=== PATIENT | female | born 1975 ===

== ENCOUNTER 2023-08-02 11:32 | Outpatient (REF) | payer OTHER, SELFPAY ==
--- NOTE | ~2023-08-02 | XR_ITS ---
EXAMINATION: XR SHOULDER, RIGHT XR SHOULDER, LEFT CLINICAL INFORMATION: Right and left shoulder pain. COMPARISON: None available. TECHNIQUE: AP and scapular Y views of the right and left shoulder. FINDINGS: RIGHT SHOULDER: No acute fracture or dislocation. No significant joint space narrowing or marginal osteophytes. Degenerative cystic change within the greater tuberosity. No concerning lytic or blastic osseous lesion. No abnormal soft tissue calcification. LEFT SHOULDER: No acute fracture or dislocation. Mild acromioclavicular joint space narrowing with small marginal osteophytes. No glenohumeral joint space narrowing or marginal osteophytes. No osseous erosion. No abnormal soft tissue calcification. XR/XR shoulder LT min 2V IMPRESSION: RIGHT SHOULDER: No acute osseous abnormality. LEFT SHOULDER: Mild acromioclavicular osteoarthritis.
--- NOTE | ~2023-08-02 | XR_ITS ---
EXAMINATION: XR SHOULDER, RIGHT XR SHOULDER, LEFT CLINICAL INFORMATION: Right and left shoulder pain. COMPARISON: None available. TECHNIQUE: AP and scapular Y views of the right and left shoulder. FINDINGS: RIGHT SHOULDER: No acute fracture or dislocation. No significant joint space narrowing or marginal osteophytes. Degenerative cystic change within the greater tuberosity. No concerning lytic or blastic osseous lesion. No abnormal soft tissue calcification. LEFT SHOULDER: No acute fracture or dislocation. Mild acromioclavicular joint space narrowing with small marginal osteophytes. No glenohumeral joint space narrowing or marginal osteophytes. No osseous erosion. No abnormal soft tissue calcification. XR/XR shoulder RT min 2V IMPRESSION: RIGHT SHOULDER: No acute osseous abnormality. LEFT SHOULDER: Mild acromioclavicular osteoarthritis.
== END 2023-08-02 11:33 | disposition home or self-care (01) ==
LOC: HO.HOSX 11:32
PROVIDERS: Visit Provider Orthopaedic Surgery
DX: M25.811 Other specified joint disorders, right shoulder (principal); M25.512 Pain in left shoulder
CPT/HCPCS: 73030; 99202

== ENCOUNTER 2023-08-02 14:25 | Outpatient (AMB) | payer OTHER, SELFPAY ==
--- NOTE | 2023-08-02 14:30 | A.OFFVIS_ITS ---
Intake Vital Signs 08/02/23 14:36 Height 4 ft 11 in Weight 120 lb BMI 24.2 Intake Visit Reasons: CAKE M[employer]ER -B/L Shoulder Impingement Intake Note: Kenya is a 48 year old right hand dominant female who presents today as a new patient with complaints of bilateral shoulder pains and weakness. The patient states that she 1st injured her shoulders in her 20s. She reaggravated both of her shoulders approximately 10 years ago while lifting a heavy object. Since that time her symptoms have gotten worse in spite of continued non operative treatments. She has done physical therapy for 12 weeks over the last 6 months which aggravated her pain. She has also had cortisone injections in the past which gave her no relief. She has tried Tylenol and anti-inflammatory medicines which gave her minimal relief. The patient states that she has difficulty lifting her right hand above shoulder height. 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 Physical Exam Vital Signs: BMI result Body Mass Index 24.2 Const Other: Well-nourished well-developed very friendly female awake alert and oriented x3 in no acute distress Extrem Other: Bilateral upper extremity examination shows good capillary refill, no skin lesions noted, normal sensation light touch Bilateral shoulder examination shows forward flexion to 150 degrees, external rotation to 30 degrees, internal rotation to level L4, 4+ over 5 strength with supraspinatus testing, positive impingement signs, tenderness over her acr omioclavicular joints Results Reviewed Results Reviewed: X-rays of the patient's bilateral shoulder show severe acromioclavicular joint narrowing, type 2 acromion, no acute bony abnormalities Assessment & Plan Assessment & Plan (1) Impingement of right shoulder: Code(s): M25.811 - Other specified joint disorders, right shoulder Plan Ms. Leung presents with bilateral shoulder pains and weakness, right greater than left, due to impingement syndrome, acromioclavicular joint arthritis and possible full-thickness rotator cuff tearing. Thus, I will send the patient for an MRI of her right shoulder for further evaluation. If she does have a full- thickness rotator cuff tear I will recommend surgical repair to optimize her future functional level. She will continue with her home stretching program in the meantime to prevent stiffness. I will see the patient back once the MRI results are available. Feel free to call me at any time should questions regarding her orthopedic management arise. Thank you very much for asking me to see this very friendly patient. I spent 22 minutes in reviewing the patient's records and imaging studies, seeing the patient and documenting in the medical record. Orders: Orders XR shoulder RT min 2V Today M25.511 - Pain in right shoulder XR shoulder LT min 2V Today M25.512 - Pain in left shoulder Coding Level of Care Code New Pt Level 2 (10534) Diagnoses Impingement of right shoulder M25.811
[2023-08-02 14:36] VITALS: BMI 24.2
== END 2023-08-02 15:02 | disposition home or self-care (01) ==
PROVIDERS: PCP Nurse Practitioner Adult Health; Visit Provider Orthopaedic Surgery
DX: M25.811 Other specified joint disorders, right shoulder (principal)
CPT/HCPCS: 99202

== ENCOUNTER 2023-08-25 08:49 | Outpatient (AMB) | payer OTHER, SELFPAY ==
[2023-08-25 08:58] VITALS: BMI 24.2
--- NOTE | 2023-08-25 08:58 | MHC.OFFVIS ---
Intake Vital Signs 08/25/23 08:58 Height 4 ft 11 in Weight 120 lb BMI 24.2 Intake Visit Reasons: OV-RT shoulder MRI review Intake Note: Kenya 48 yr old female presents today for her right shoulder MRI review. The patient presents with complaints of progressively worsening right shoulder pain weakness. Her symptoms have gotten worse over the last few years in spite of continued non operative treatments. She has had trouble working out at the gym because of her pain and weakness. She has tried Tylenol and anti-inflammatory medicines which gave her minimal relief. 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 Physical Exam Vital Signs: BMI result Body Mass Index 24.2 Const Other: Well-nourished well-developed very friendly female awake alert and oriented x3 in no acute distress Extrem Other: Bilateral upper extremity examination shows good capillary refill, no skin lesions noted, normal sensation light touch Right shoulder examination shows almost full range of motion when compared to her left shoulder, 4/5 strength with supraspinatus testing, positive impingement signs, tenderness over her acromioclavicular joint, no instability Results Reviewed Results Reviewed: MRI of the patient's right shoulder shows severe acromioclavicular joint narrowing, type 3 acromion, a small full-thickness rotator cuff tear with minimal retraction Assessment & Plan Assessment & Plan (1) Unspecified rotator cuff tear or rupture of right shoulder, not specified as traumatic: Code(s): M75.101 - Unspecified rotator cuff tear or rupture of right shoulder, not specified as traumatic Plan: Ms. Leung presents with right shoulder pain and weakness due to impingement syndrome, acromioclavicular joint arthritis and a small full-thickness rotator cuff tear. I had a lengthy discussion with the patient regarding the treatment options. At this point she appears to be failing continued non operative treatments. The patient will likely need right shoulder rotator cuff repair surgery at some point in the near future. We did discuss the risks and benefits of an arthroscopic repair versus a mini-open repair. She is interested in learning more about an arthroscopic procedure. Thus, I will arrange for her to have a follow-up appointment with my partner, Dr. Kameron Zamora, to further discuss the possibility of right shoulder arthroscopic rotator cuff repair. She will continue with her range of motion exercises in the meantime to prevent stiffness. Feel free to call me at any time should questions regarding her orthopedic management arise. I spent 21 minutes in reviewing the patient's records and imaging studies, seeing the patient and documenting in the medical record. Coding Level of Care Code Est Pt Level 2 (08213) Diagnoses Unspecified rotator cuff tear or rupture of right shoulder, not specified as traumatic M75.101
== END 2023-08-25 09:23 | disposition home or self-care (01) ==
PROVIDERS: PCP Nurse Practitioner Adult Health; Visit Provider Orthopaedic Surgery
DX: M75.101 Unspecified rotator cuff tear or rupture of right shoulder, not specified as traumatic (principal)
CPT/HCPCS: 99212

== ENCOUNTER → 2023-08-25 08:49 | Outpatient (BNVA) | payer OTHER, SELFPAY | PROVIDERS: PCP Nurse Practitioner Adult Health; Visit Provider Orthopaedic Surgery | DX: M75.101 Unspecified rotator cuff tear or rupture of right shoulder, not specified as traumatic (principal) | CPT/HCPCS: 99212 ==

== ENCOUNTER 2023-09-08 11:35 | Outpatient (AMB) | payer OTHER, SELFPAY ==
--- NOTE | 2023-09-08 11:41 | A.OFFVIS_ITS ---
Intake Vital Signs 09/08/23 11:42 Height 4 ft 11 in Weight 120 lb BMI 24.2 Intake Visit Reasons: ov- right shoulder pain Intake Note: Tjeal is a 48 year old right hand dominant female who presents today for discussion of right shoulder arthroscopic rotator cuff repair. No history of injections. Allergies No Known Allergies Allergy (Verified 08/02/23 14:42) HPI ov- right shoulder pain HPI Details Kenya is a 48 year old woman who presents for an MRI review of her right RTC tear. SHe has pain with lifting and is limited. She has done PT without benefit. She complains of pain with daily activity, worse with overhead activity and at night. She denies any prior injections. She was seen by Dr. Painter and would like to discuss surgery today. 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 Review of Systems Const All systems reviewed & are unremarkable except as noted in HPI and below Physical Exam Vital Signs: BMI result Body Mass Index 24.2 Const General: no acute distress, alert and awake Orientation/consciousness: patient oriented x3 HEENT Head: Yes normocephalic and Yes atraumatic Eyes EOM: EOMs intact bilaterally Resp Effort & Inspection: normal respiratory effort and able to speak in complete sentences Cardio Jugular venous distension: no JVD Skin General skin exam: turgor normal Rashes: no rashes Neuro General: patient oriented x3 Extrem Other: 45/90/130/T10 4+/5 emtpy can +lag +H/N Psych Appearance: grossly normal Affect: normal affect Attitude: cooperative Results Reviewed Results Reviewed: MRI of the patient's right shoulder shows severe acromioclavicular joint narrowing, type 3 acromion, and a full-thickness rotator cuff tear with minimal retraction Assessment & Plan Assessment & Plan (1) Unspecified rotator cuff tear or rupture of right shoulder, not specified as traumatic: Code(s): M75.101 - Unspecified rotator cuff tear or rupture of right shoulder, not spe cified as traumatic Plan: This is a 48 year old woman with right RTC full thickness tear. She would like to be able to exercise and , at the current time, she is unable to do so. Her MRI shows a full-thickness tear without retraction. I recommed RTC repair. I discussed the risks benefits and alternatives including but not limited to the risk of pain, infection, stiffness, need for further surgery as well as potential medical complications. She expressed understanding and we will proceed forward accordingly. Coding Level of Care Code Est Pt Level 4 (14382) Diagnoses Unspecified rotator cuff tear or rupture of right shoulder, not specified as traumatic M75.101
[2023-09-08 11:42] VITALS: BMI 24.2
== END 2023-09-08 13:00 | disposition home or self-care (01) ==
PROVIDERS: PCP Nurse Practitioner Adult Health; Visit Provider Orthopaedic Surgery
DX: M75.121 Complete rotator cuff tear or rupture of right shoulder, not specified as traumatic (principal)
CPT/HCPCS: 99214

== ENCOUNTER → 2023-09-08 11:35 | Outpatient (BNVA) | payer OTHER, SELFPAY | PROVIDERS: PCP Nurse Practitioner Adult Health; Visit Provider Orthopaedic Surgery | DX: M75.101 Unspecified rotator cuff tear or rupture of right shoulder, not specified as traumatic (principal) | CPT/HCPCS: 99212 ==

== ENCOUNTER → 2023-12-14 09:31 | Outpatient (BNVA) | payer OTHER, SELFPAY | PROVIDERS: PCP Nurse Practitioner Adult Health; Visit Provider Physician Assistant ==

== ENCOUNTER 2023-12-20 09:39 | Day surgery (SDC) | payer OTHER, SELFPAY ==
[2023-12-18 10:58] VITALS: BMI 24.2
--- NOTE | 2023-12-19 10:23 | HO.ANESPROP2 ---
Documented by User: Beverly Puga NP 12/19/23 10:24 HPI - Anesthesia Eval Consult details Narrative: 48yo F for Right Arthroscopic Rotator Cuff Repair PMFSH Active Problems Active Problems: All Active Problems (Updated 12/18/23 @ 10:58 by Sue Kaplan RN) Unspecified rotator cuff tear or rupture of right shoulder, not specified as traumatic (Acute) Impingement of right shoulder (Acute) Right shoulder pain (Acute) Left shoulder pain (Acute) Past Medical History Medical History (Updated 12/18/23 @ 10:58 by Sue Kaplan RN) PONV (postoperative nausea and vomiting) Hx of migraine headaches Rotator cuff tear, right Surgical History Surgical History (Updated 12/18/23 @ 10:39 by Sue Kaplan RN) History of myomectomy Hx of breast augmentation Hx of abdominoplasty History of Problems with Anesthesia: Yes (PONV) Social History Social History (Updated 12/18/23 @ 11:01 by Sue Kaplan RN) Household Members: None Housing: Apartment Are you a primary inspector health care facilities to a significant other at home: No Do you presently have visiting nurse or other home services: No Patient Tobacco Use Status: Former Tobacco user Quit Date: 2000 Tobacco use type: Cigarette Use of substances other than those prescribed or required for medical reasons: Yes Substance Use Type: Marijuana Substance Use Type Other:: at bedtime, smoked, vaped or edibles Substance Use Frequency: Occasionally Have you been hit, kicked, punched, or otherwise hurt by someone within the past year? 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 Meds Allergies Allergy/AdvReac Type Severity Reaction Status Date / Time No Known Allergies Allergy Verified 12/14/23 09:34 Home Medications Medication Instructions Recorded Confirmed Last Taken Type Fish Oil 12/18/23 12/14/23 History Exam Height,Weight and Vital Signs: Height 4 ft 11 in Weight 54.431 kg Assessment and Plan Assessment Anesthesia Assessment: Chart Reviewed Final Anesthetic Review History of Problems with Anesthesia: Yes (PONV) Documented by User: Razia Adkins MD 12/20/23 10:23 PMFSH Past Medical History Medical History (Updated 12/18/23 @ 10:58 by Sue Kaplan RN) PONV (postoperative nausea and vomiting) Hx of migraine headaches Rotator cuff tear, right Family History Family history of problems with anesthesia: No Surgical History Surgical History (Updated 12/18/23 @ 10:39 by Sue Kaplan RN) History of myomectomy Hx of breast augmentation Hx of abdominoplasty Social History Social History (Updated 12/18/23 @ 11:01 by Sue Kaplan RN) Household Members: None Housing: Apartment Are you a primary inspector health care facilities to a significant other at home: No Do you presently have visiting nurse or other home services: No Patient Tobacco Use Status: Former Tobacco user Quit Date: 2000 Tobacco use type: Cigarette Use of substances other than those prescribed or required for medical reasons: Yes Substance Use Type: Marijuana Substance Use Type Other:: at bedtime, smoked, vaped or edibles Substance Use Frequency: Occasionally Have you been hit, kicked, punched, or otherwise hurt by someone within the past year? 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 Meds Allergies Allergy/AdvReac Type Severity Reaction Status Date / Time No Known Allergies Allergy Verified 12/14/23 09:34 Home Medications Medication Instructions Recorded Confirmed Last Taken Type Fish Oil 12/18/23 12/14/23 History Exam Airway Mallampati Class: II (caps laterally) TM Dist: >3cm Neck ROM: Full Heart: rrr Lungs: cta Assessment and Plan Assessment Anesthesia Assessment: Anesthesia Plan Discussed Final Anesthetic Review Family History of Problems with Anesthesia: No NPO: Yes ASA Class: II Final Preanesthetic Review: No Changes in Pt Med Stat, Meds/Allgs Chart Reviewed and Consent Obtained/Reviewed Patient Risk: Intermediate Procedure Risk: Intermediate Anesthetic Plan Anesthetic Plan: GA Disposition: Standard PACU
[2023-12-20] VITALS (10 sets, daily range): BP systolic 108–121; BP diastolic 64–80; PULSE 67–84; RESP 14–17; TEMP 36.4–36.9; O2SAT 95–100
[2023-12-20] MEDS: Scopolamine 1.5 MG PATCH.TD.3 TRANSDERMA (10:22)
[2023-12-20] MEDS: Lactated Ringers 1,000 ML 100 ML IVCONT (10:23)
[2023-12-20 10:28] LABS: UPreg QC Valid YES; Urine Pregnancy NEGATIVE (NEGATIVE)
--- NOTE | 2023-12-20 10:44 | MHC.SHP ---
Pre-Procedural Eval Section A - 24 Hr Update-Section A only Date of Service: 12/20/23 The patient is an INPATIENT: No Changes since office visit: No Cold of Flu in the past 2 weeks, No New Medical Problems, No Changes in Medication and No Patient answered all questions The patient has been examined within 24 hours of the surgical procedure. The History & Physical has been completed within 30 days and I have reviewed it.: Yes Section B - Complete if H&P > 30 days Chief Complaint: Unspecified rotator cuff tear or rupture of right Allergies: Allergies Allergy/AdvReac Type Severity Reaction Status Date / Time No Known Allergies Allergy Verified 12/20/23 10:24 Plan I have reviewed the history and physical and performed a pertinent physical examination on my patient. No changes have occurred unless specified. Time Spent With Patient Time: Total time managing care of this patient today ____ minutes.
--- NOTE | 2023-12-20 13:07 | P.BOP_ITS ---
Brief Operative Note Date of Service: 12/20/23 Pre-op diagnosis: Right rtc tear Post-op diagnosis: other (1) Right rtc tear 2) Biceps tenodesis) Procedure: RTC repair Biceps tenodesis Implants: Phan and Nephew Helacoil x5 Surgeon: Kameron Zamora MD Anesthesia: GETA and regional Was an Applications Sales Consultant used for this Procedure?: Yes Applications Sales Consultant: Barbie Vallejo Estimated blood loss (mL): 10 IV fluids (mL): 1,000 Pathology: none sent Condition: stable Disposition: PACU
--- NOTE | 2023-12-27 07:39 | W.PM.OPN ---
Operative Note Operative Note Date of Service: 12/20/23 Narrative: Date of Service: 12/20/23 Pre-op diagnosis: Right rtc tear Post-op diagnosis: other (1) Right rtc tear 2) Biceps tenodesis) Procedure: RTC repair Biceps tenodesis Implants: Phan and Nephew Helacoil x5 Surgeon: Kameron Zamora MD Anesthesia: GETA and regional Was an Shellfish Checker used for this Procedure?: Yes Shellfish Checker: Barbie Vallejo Estimated blood loss (mL): 10 IV fluids (mL): 1,000 Pathology: none sent Condition: stable Disposition: PACU Procedure in detail: Patient was brought to the operating room and placed the the beach chair position. All bony prominences were well padded and the limb was prepped and draped in standard sterile fashion. A time out was called to identify proper site, proper procedure and proper surgeon. IV antibiotics per weight were administered. I began by making a posterolateral stab incision with a 15 blade. A blunt trochar was placed into the glenohumeral joint and I insufflated the joint with saline and a 30 degree arthroscope was placed. I established an outside- in anterior portal just distal to the biceps tendon. I then began my inspection of the glenohumeral joint. There was a large biceps tendon tear that extended from the labral anchor down to the bicipital groove. There were minimal cartilage changes at the inferior glenoid without humeral head changes. There was a full thickness undersurface RTC tear. The subcapularis was intact. I debrided the loose cartilage of the glenoid and the degenerative labral tearing and performed a biceps tenotomy. I then removed the trochar and entered the subacromial space. A direct lateral portal was then established and I performed a bursectomy. The cuff was then examined. There was a full thickness tear of the supra and infraspinatus without retraction. The tear was mobile. THe biceps tendon was visualized at the top of the groove and then I passed two looped sutures and dunked it into the humeral head at the top of the bicipitakl groove using aone 5.0 knotless Helacoil. I then turned my attention to the cuff. I placed two medial row double loaded anchors after using a tap just adjacent to the articular cartilage and then brought the suture limbs ( 8) through the medial cuff. I then debrided the bare area down to bleeding bone and, using a cross bridge configuration, brought 4 limbs to each of two lateral 5.0 anchors. This re-approximated the cuff anatomy anatomically. Once I was satisfied with the repair final images were captured and I removed all instrumentation. Portals were closed with nylon. Patient was placed in an abduction sling, extubated and brought to the recovery room in stable condition. There were no known complications.
== END 2023-12-20 15:45 | disposition home or self-care (01) ==
LOC: HO.SSS 09:40
PROVIDERS: Nurse Practitioner; PCP Internal Medicine; Visit Provider Orthopaedic Surgery
PROC: (CPT 29827; principal; 2023-12-20 11:50)
DX: M75.01 Adhesive capsulitis of right shoulder (principal); G43.909 Migraine, unspecified, not intractable, without status migrainosus; Z98.890 Other specified postprocedural states; Z87.891 Personal history of nicotine dependence
CPT/HCPCS: 29827; 81025; C1713; J0171; J0690; J1100; J2250; J2405; J2704; J3010

== ENCOUNTER → 2023-12-20 09:39 | Outpatient (BNV) | payer OTHER, SELFPAY | PROVIDERS: PCP Internal Medicine; Visit Provider Orthopaedic Surgery | DX: M75.121 Complete rotator cuff tear or rupture of right shoulder, not specified as traumatic (principal); M75.21 Bicipital tendinitis, right shoulder | CPT/HCPCS: 29827 ==

== ENCOUNTER 2023-12-27 09:26 | Outpatient (AMB) | payer OTHER, SELFPAY ==
--- NOTE | 2023-12-27 09:33 | A.OFFVIS_ITS ---
Intake Intake Visit Reasons: PO - right RTC repair 12/20/23/ confirmed Intake Note: Tejal is a 48 year old female who presents today for a post op appointment s/p right RTC repair 12/20/23 NE. Patient reports she is doing well, yet feeling a sore. She would like to know when she can do the exercises. Allergies No Known Allergies Allergy (Verified 12/27/23 09:38) HPI PO - right RTC repair 12/20/23/ confirmed HPI Details 48-year-old female who presents in the o ffice today 7 days status post right rotator cuff repair with bicep tenodesis, which was performed on 12/20/[address] Zamora. While in the office today the patient reports she is doing well, with some dull pain. [facility] Medical History (Updated 12/18/23 @ 10:58 by Sue Kaplan RN) PONV (postoperative nausea and vomiting) Hx of migraine headaches Rotator cuff tear, right Surgical History (Updated 12/27/23 @ 09:42 by Holley Faria) History of myomectomy Hx of breast augmentation Hx of abdominoplasty Social History (Updated 12/18/23 @ 11:01 by Sue Kaplan RN) Household Members: None Housing: Apartment Are you a primary career developer to a significant other at home: No Do you presently have visiting nurse or other home services: No 75 years or older and lives alone: No Patient Tobacco Use Status: Former Tobacco user Quit Date: 2000 Tobacco use type: Cigarette Substance Use Type: Marijuana Current occupational status: employed 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 Sutures intact. No surrounding erythema or drainage. No signs of infection. Forward flexion and abduction to 45 degrees. External rotation to neutral. NVI. Assessment & Plan Assessment & Plan (1) Status post right rotator cuff repair: Onset Date: ~12/20/23 Comment: Dr. Kameron Zamora Code(s): Z98.890 - Other specified postprocedural states Plan Ms. Leung is a 48-year-old female who presents in the office today 7 days status post right rotator cuff repair with bicep tenodesis, which was performed on 12/20/[address] Zamora. While in the office today the patient reports she is doing well, but does feel sore. She is interested in exercises she can work on to help. Sutures were removed and steri-stripes were applied. She was placed back into the sling with adjustments made. Sling will remain in place for 6 weeks. Her first physical therapy appointment will be tomorrow on 12/28/2023. Follow up will be in 4 weeks, or sooner if needed. Patient Instructions: Scribed by Holley Faria dental assistant medical assistant, for Barbie Vallejo PA-C on 12/27/2023 at 9:29 am, EST. Coding Level of Care Code Global (32938) Diagnoses Status post right rotator cuff repair Z98.890
== END 2023-12-27 10:02 | disposition home or self-care (01) ==
PROVIDERS: PCP Nurse Practitioner Adult Health; Visit Provider Physician Assistant
DX: Z98.890 Other specified postprocedural states (principal)
CPT/HCPCS: 99024

== ENCOUNTER → 2023-12-27 09:26 | Outpatient (BNVA) | payer OTHER, SELFPAY | PROVIDERS: PCP Nurse Practitioner Adult Health; Visit Provider Physician Assistant | DX: Z47.89 Encounter for other orthopedic aftercare (principal); Z98.890 Other specified postprocedural states | CPT/HCPCS: 99212 ==

== ENCOUNTER 2024-01-25 09:31 | Outpatient (AMB) | payer OTHER, SELFPAY ==
--- NOTE | 2024-01-25 09:36 | MHC.OFFVIS ---
Intake Intake Visit Reasons: PO-right RTC repair 12/20/23 NE - Confirmed Intake Note: Kenya is a 48 year old female who presents today for a post op appointment s/p right RTC repair 12/20/23 NE. Patient reports that she is dong well, she has some stiffness and an occasional pinching sensation in the anterior aspect of the shoulder. At this time she remains in the sling mostly when she is out of the house and when sleeping. Continues to work with physical therapy and at home exercises. She has been taking primarily Ibuprofen which is helping. She is at work. Allergies No Known Allergies Allergy (Verified 12/27/23 09:38) HPI PO-right RTC repair 12/20/23 NE - Confirmed HPI Details Kenya is a 48 year old female who presents today for a post op appointment s/p right RTC repair 12/20/23 NE. Patient reports that she is dong well, she has some stiffness and an occasional pinching sensation in the anterior aspect of the shoulder. At this time she remains in the sling mostly when she is out of the house and when sleeping. Continues to work with physical therapy and at home exercises. She has been taking primarily Ibuprofen which is helping. She is at work. [facility] Medical History (Updated 12/18/23 @ 10:58 by Sue Kaplan RN) PONV (postoperative nausea and vomiting) Hx of migraine headaches Rotator cuff tear, right Surgical History (Updated 12/27/23 @ 09:42 by Holley Faria) History of myomectomy Hx of breast augmentation Hx of abdominoplasty Social History (Updated 12/18/23 @ 11:01 by Sue Kaplan RN) Household Members: None Housing: Apartment Are you a primary child care development specialist to a significant other at home: No Do you presently have visiting nurse or other home services: No 75 years or older and lives alone: No Patient Tobacco Use Status: Former Tobacco user Quit Date: 2000 Tobacco use type: Cigarette Substance Use Type: Marijuana Current occupational status: employed 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 Kameron Zamora Code(s): Z98.890 - Other specified postprocedural states Plan: f/u 6 weeks March d/c sling Large RTC repair protocol Coding Level of Care Code Global (22929) Diagnoses Status post right rotator cuff repair Z98.890
== END 2024-01-25 10:30 | disposition home or self-care (01) ==
PROVIDERS: PCP Nurse Practitioner Adult Health; Visit Provider Orthopaedic Surgery
DX: Z98.890 Other specified postprocedural states (principal)
CPT/HCPCS: 99024

== ENCOUNTER → 2024-01-25 09:31 | Outpatient (BNVA) | payer OTHER, SELFPAY | PROVIDERS: PCP Nurse Practitioner Adult Health; Visit Provider Orthopaedic Surgery | DX: M25.611 Stiffness of right shoulder, not elsewhere classified (principal); Z47.89 Encounter for other orthopedic aftercare; Z98.890 Other specified postprocedural states | CPT/HCPCS: 99212 ==

== ENCOUNTER 2024-03-07 13:18 | Outpatient (AMB) | payer OTHER, SELFPAY ==
--- NOTE | 2024-03-07 13:35 | A.OFFVIS_ITS ---
Intake Visit Reasons: PO-right RTC repair 12/20/23 NE Intake Note: Kenya is a 48 year old right hand dominant female who presents today for a post op appointment s/p right RTC repair 12/20/23 NE. At her last visit she was instructed to discontinue use of sling . Patient reports that she is doing well, she has increased pain after Physical Therapy. She has no addition concerns. Allergies No Known Allergies Allergy (Verified 12/27/23 09:38) HPI HPI PO-right RTC repair 12/20/23 NE: Details: 2.5 months s/p r rtc repair. She is doing very well with no complaints PFSH Medical History (Updated 12/18/23 @ 10:58 by Sue Kaplan, TIGIST) PONV (postoperative nausea and vomiting) Hx of migraine headaches Rotator cuff tear, right Surgical History (Updated 12/27/23 @ 09:42 by Holley Faria) History of myomectomy Hx of breast augmentation Hx of abdominoplasty Social History (Updated 12/18/23 @ 11:01 by Sue Kaplan, TIGIST) Household Members: None Housing: Apartment Are you a primary director of health care marketing to a significant other at home: No Do you presently have visiting nurse or other home services: No Patient Tobacco Use Status: Former Tobacco user Quit Date: 2000 Tobacco use type: Cigarette Substance Use Type: Marijuana Current occupational status: employed 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 Kameron Zamora Code(s): Z98.890 - Other specified postprocedural states Category: Surgical Plan: Lauren is doing exceptionally well. May continue gadual strengthening and f/u prn. Avoid heavy lifting and overhead lifting for at least 6 months. Coding Level of Care Code Global (11417) Diagnoses Status post right rotator cuff repair Z98.890
== END 2024-03-07 13:56 | disposition home or self-care (01) ==
LOC: HO.HOS 13:18
PROVIDERS: PCP Nurse Practitioner Adult Health; Visit Provider Orthopaedic Surgery
DX: Z98.890 Other specified postprocedural states (principal)
CPT/HCPCS: 99024

== ENCOUNTER → 2024-03-07 13:18 | Outpatient (BNVA) | payer OTHER, SELFPAY | PROVIDERS: PCP Nurse Practitioner Adult Health; Visit Provider Orthopaedic Surgery | DX: Z09 Encounter for follow-up examination after completed treatment for conditions other than malignant neoplasm (principal) | CPT/HCPCS: 99212 ==

== ENCOUNTER 2024-04-03 07:00 | Outpatient (RCR) | payer OTHER, SELFPAY ==
--- NOTE | 2023-12-28 09:24 | MHC.PT.EP ---
[facility] [place] [facility] [place] [facility] [place] Office [address] Aguila Mcleod [address] [phone] F: [phone] F: [phone] F: [phone] F: [phone] Physical Therapy Plan of Care Date of Evaluation: 12/28/23 Date of Surgery: 12/20/23 Diagnosis: This is a 48 yo female presenting to skilled PT with a script for R RTC repair. Assessment: This is a 48 yo female presenting to skilled PT with a script for R RTC repair. Patient's surgery was performed on 12/20/23. Patient underwent a biceps tenodesis and full thickness RTC repair or supra and infraspinatus. Surgery was performed by Dr. Zamora. Patient is here today reporting pain at rest and with with attempt to move, reports pain is achiness and burning. Pain is more interior. Sutures were removed and steri-stripes were applied at her PO appointment on 12/27. She was placed back into the sling with adjustments made. Sling will remain in place for 6 weeks. Follow up with ortho will be in 4 weeks, or sooner if needed. She has had PT in the past as well as cortisone injections. She also reports the L shoulder is also starting to bother her. She is very active and enjoys working out. Assessment reveals pain that ranges from up to a 5/10 at the worst. Patient demos decreased R shoulder ROM, strength of R shoulder, TTP at GHJ joint line, UT and incision areas and impaired posture with forward head and rounded shoulders all expected status post RTC repair. Based on functional limitations, impaired QOL and pain tolerance patient is a good candidate for skilled PT 2x/wk for 8wks. Frequency and Duration: The patient will be seen 2x/wk for 8wks Short Term Goals: Demo I with HEP in 2 wks Improve shoulder PROM to WFL in 3 wks Demo proper scapular recruitment with appropriate shoulder strengthening exercises Senior Living Goals: Improve shoulder nonpainful AROM to almost near equal B in 8 wks Demo at least 4/5 grade improvement in MMT for shoulder in 8 wks Improve SPADI by at least 10 points in 8 wks Improve overall functional QOL by at least 75% in 8 wks Treatment Plan: Modalities to reduce pain, spasms and effusion. Manual therapy to restore motion and function. Therapeutic exercise to improve strength and flexibility. Neuromuscular re-education for posture and balance. Therapeutic activities to return to functional activities of daily living. Electronically signed by: Gabbi Desai PT Please sign and return to therapist. Thank you for your referral.
--- NOTE | 2024-05-01 07:14 | MHC.PT.EP ---
[facility] [place] Office [place] Office [place] Office [address] Aguila Mcleod [address] [phone] F: [phone] F: [phone] F: [phone] F: [phone] Physical Therapy Plan of Care Date of Evaluation: 12/28/23 Date of Surgery: 12/20/23 Diagnosis: This is a 48 yo female presenting to skilled PT with a script for R RTC repair. Assessment: This is a 48 yo female presenting to skilled PT with a script for R RTC repair. Patient's surgery was performed on 12/20/23. Patient underwent a biceps tenodesis and full thickness RTC repair or supra and infraspinatus. Surgery was performed by Dr. Zamora. Patient is here today reporting pain at rest and with with attempt to move, reports pain is achiness and burning. Pain is more interior. Sutures were removed and steri-stripes were applied at her PO appointment on 12/27. She was placed back into the sling with adjustments made. Sling will remain in place for 6 weeks. Follow up with ortho will be in 4 weeks, or sooner if needed. She has had PT in the past as well as cortisone injections. She also reports the L shoulder is also starting to bother her. She is very active and enjoys working out. Assessment reveals pain that ranges from up to a 5/10 at the worst. Patient demos decreased R shoulder ROM, strength of R shoulder, TTP at GHJ joint line, UT and incision areas and impaired posture with forward head and rounded shoulders all expected status post RTC repair. Based on functional limitations, impaired QOL and pain tolerance patient is a good candidate for skilled PT 2x/wk for 8wks. Frequency and Duration: The patient will be seen 2x/wk for 3wks Short Term Goals: Improve shoulder strength for abduction and flexion by at least 1 MMT (to 4/5) in 2 weeks -MET Begin some modified weightbearing through extremities without pain in 2 weeks - MET Patient will return to a normal exercise routines in 2 weeks (total body routines with respect to shoulder healing time frames) - MET Licensed Mental Health Professional Goals: Improve shoulder nonpainful AROM to almost near equal B in 6 wks - MET Demo at least 4+/5 grade improvement in MMT for shoulder in 6 wks Improve SPADI by at least 10 points in 6 wks - MET Improve overall functional QOL by at least 75% in 6 wks - MET Treatment Plan: Modalities to reduce pain, spasms and effusion. Manual therapy to restore motion and function. Therapeutic exercise to improve strength and flexibility. Neuromuscular re-education for posture and balance. Therapeutic activities to return to functional activities of daily living. Electronically signed by: Gabbi Desai PT Please sign and return to therapist. Thank you for your referral.
== END 2024-05-01 07:15 | disposition home or self-care (01) ==
LOC: HO.PTCHIC 07:00
PROVIDERS: PCP Physician Assistant; Visit Provider Orthopaedic Surgery
DX: M75.101 Unspecified rotator cuff tear or rupture of right shoulder, not specified as traumatic (principal); M25.811 Other specified joint disorders, right shoulder
CPT/HCPCS: 97110; 97140; 97162; 97164